=== PATIENT | male | born 1940 | race Caucasian/White ===

== ENCOUNTER 2024-05-15 07:40 | Day surgery (SDC) | payer MEDICARE, BC ==
[2024-05-15] MEDS ORDERED: Lidocaine 2%-Epineph 1:100000 20 ML MDV ONE (09:24)
[2024-05-15] MEDS ORDERED: ATOR20 PO (09:39)
[2024-05-15] MEDS ORDERED: AMLO10 PO (09:39)
[2024-05-15] MEDS ORDERED: BALSALAZIDE DI750 M1 PO (09:40)
[2024-05-15] MEDS ORDERED: ELIQUIS5 M2 PO (09:41)
[2024-05-15] MEDS ORDERED: CALCIUM CIT 311 EAC7 PO (09:41)
[2024-05-15] MEDS ORDERED: FERSU300 PO (09:42)
[2024-05-15] MEDS ORDERED: LASIX40 MG PO (09:43)
[2024-05-15] MEDS ORDERED: JARDIANCE10 MG PO (09:43)
[2024-05-15] MEDS ORDERED: LISI20 PO (09:43)
[2024-05-15] MEDS ORDERED: POTA10T PO (09:43)
[2024-05-15] MEDS ORDERED: BUME1 PO (09:44)
== END 2024-05-16 22:35 | disposition home or self-care (01) ==
LOC: MHTC 07:40
DX: Z45.09 Encounter for adjustment and management of other cardiac device (principal); Z53.20 Procedure and treatment not carried out because of patient's decision for unspecified reasons

== ENCOUNTER → 2024-07-03 | Outpatient (CLI) | payer MEDICARE, BC ==
[~2024-07-03] MED LIST: AMLO10 PO; ATOR20 PO; BALSALAZIDE DI750 M1 PO; BUME1 PO; CALCIUM CIT 311 EAC7 PO; ELIQUIS5 M2 PO; FERSU300 PO; JARDIANCE10 MG PO; LASIX40 MG PO; LISI20 PO; POTA10T PO
[2024-07-07 08:05] LABS: CALPROTECTIN,FECAL 6 ug/g (<=49)
== END | disposition home or self-care (01) ==
LOC: LAB SHORT 11:15 → LAB 11:15 → LAB FUT 07-03 09:55
PROVIDERS: Nurse Practitioner Family
DX: K51.90 Ulcerative colitis, unspecified, without complications (principal); R19.5 Other fecal abnormalities
CPT/HCPCS: 83993

== ENCOUNTER 2025-05-07 06:51 | Day surgery (SDC) | payer MEDICARE, BC ==
[~2025-05-07] VITALS: Ht 180.3 cm; Wt 107.2 kg
[~2025-05-07 06:51] MED LIST changes: +Acetaminophen650 M1 PO; +COQMAX UBIQUIN100 MG PO; +DOCU100 PO; +Lidocaine 1%-Epineph 1:100000 20 ML MDV ONE; +MELA3 PO; +MULVITA PO; +NS 500 ML IV ONE; +THERA-D2000 UNIT PO; +Vitamin B-12100 MCG PO
[2025-05-07] MEDS ORDERED: NS 500 ML IV ONE (07:44)
--- NOTE | 2025-05-07 07:49 | NUR ---
05/07/[address] INJECTED 7ML LIDOCAINE 1% WITH EPI 1:100,000 AT 0748. PT TOLERATED WELL.
[2025-05-07] MEDS ORDERED: CeFAZolin Sodium 2,000 MG VIAL ONE (07:51)
[2025-05-07] MEDS ORDERED: Midazolam HCl 1MG / ML 2ML Vial ONE (08:17)
[2025-05-07] MEDS ORDERED: Ketorolac Tromethamine 30mg Vial ONE (08:17)
--- NOTE | 2025-05-07 09:06 | NUR ---
05/07/25 0906 Jaycee Paiz BP CLOSE TO WNL, BUT LOW COMPARED TO PRE-OP PT STATES HE FEELS OKAY
== END 2025-05-07 09:04 | disposition home or self-care (01) ==
LOC: ORSCSDS 06:51
PROVIDERS: Orthopaedic Surgery
PROC: 0JBH0ZX Excision of Left Lower Arm Subcutaneous Tissue and Fascia, Open Approach, Diagnostic (ICD-10-PCS; 2025-05-07)
PROC: 01N54ZZ Release Median Nerve, Percutaneous Endoscopic Approach (ICD-10-PCS; principal; 2025-05-07 08:30)
DX: G56.03 Carpal tunnel syndrome, bilateral upper limbs (principal); E11.9 Type 2 diabetes mellitus without complications; I10 Essential (primary) hypertension; I25.2 Old myocardial infarction; Z95.0 Presence of cardiac pacemaker; I48.91 Unspecified atrial fibrillation; G47.33 Obstructive sleep apnea (adult) (pediatric); Z87.891 Personal history of nicotine dependence; Z79.01 Long term (current) use of anticoagulants; Z79.899 Other long term (current) drug therapy
CPT/HCPCS: 82947; 88304; 88313; J0690; J1885; J2250; J7040